=== PATIENT | male | born 1985 | race Asian ===

== ENCOUNTER → 2023-09-19 08:25 | Outpatient (REF) | payer BC, SELFPAY ==
[2023-09-19 12:03] LABS: % Basophils 0.4 % (0-2); % Eosinophils 2.2 % (0-6); % Immature Granulocytes 0.2 % (0-0.5); % Lymphocytes 23.6 % (20.5-51.1); % Monocytes 4.7 % (1.7-9.3); % Neutrophils 68.9 % (42.2-75.2); Absolute Eosinophils 0.2 10^3/uL (0-0.7); Absolute Lymphocytes 2.3 10^3/uL (1.2-3.4); Absolute Monocytes 0.5 10^3/uL (0.1-0.6); Absolute Neutrophils 6.6 10^3/uL (1.4-6.5); Hematocrit 50.5 % (39.0-52.0); Hemoglobin 17.2 g/dL (13.0-18.0); Mean Corp Hgb Conc. 34.1 g/dL (33.0-37.0); Mean Corpuscular Hgb 28.6 pg (27.0-31.0); Nucleated Red Blood Cells % 0 % (-); Platelet Count 288 10^3/uL (130-400); Red Blood Cell Count 6.01 10^6/uL (4.70-6.10); Red Cell Dist. Width 12.2 % (11.5-14.5); White Blood Cell Count 9.6 10^3/uL (4.8-10.8)
[2023-09-19 12:23] LABS: Glycohemoglobin (HgbA1c) 5.8 % (4.0-5.6)
[2023-09-19 12:27] LABS: ALT (SGPT) 33 U/L (0-50); AST (SGOT) 31 U/L (17-59); Alkaline Phosphatase 87 U/L (38-126); Blood Urea Nitrogen 16 mg/dl (9-20); Calcium 9.6 mg/dl (8.4-10.2); Carbon Dioxide 30 mmol/L (22-30); Chloride 102 mmol/L (98-107); Glucose 116 mg/dl (70-99); HDL Cholesterol 39 mg/dl; LDL Cholesterol, Calculated 84 mg/dl; Potassium 4.3 mmol/L (3.5-5.1); Sodium 140 mmol/L (135-145); Total Bilirubin 0.6 mg/dl (0.2-1.3); Total Cholesterol 170 mg/dl (50-199); Total Protein 8.2 g/dl (6.3-8.2); Triglyceride 238 mg/dl (10-149); Very Low Density Lipoprotein 47 mg/dl (0-30); eGFR > 60.00
[2023-09-19 13:07] LABS: Vitamin B12 795 pg/ml (239-931)
== END ==
LOC: HWLAB 08:25
PROVIDERS: ATTENDING PHYSICIAN Internal Medicine
DX: E11.69 Type 2 diabetes mellitus with other specified complication (principal); E78.2 Mixed hyperlipidemia; E53.8 Deficiency of other specified B group vitamins
CPT/HCPCS: 36415; 80053; 80061; 82607; 83036; 85025

== ENCOUNTER → 2024-02-20 13:20 | Outpatient (REF) | payer BC, SELFPAY ==
[2024-02-20 15:29] LABS: % Basophils 0.3 % (0-2); % Eosinophils 1.9 % (0-6); % Immature Granulocytes 0.2 % (0-0.5); % Lymphocytes 23.2 % (20.5-51.1); % Neutrophils 69.4 % (42.2-75.2); Absolute Eosinophils 0.2 10^3/uL (0-0.7); Absolute Monocytes 0.4 10^3/uL (0.1-0.6); Hematocrit 43.8 % (39.0-52.0); Hemoglobin 15.5 g/dL (13.0-18.0); Mean Corp Hgb Conc. 35.4 g/dL (33.0-37.0); Mean Platelet Volume 9.4 fL (7.4-10.4); Nucleated Red Blood Cells % 0 % (-); Platelet Count 264 10^3/uL (130-400); Red Blood Cell Count 5.34 10^6/uL (4.70-6.10); White Blood Cell Count 8.6 10^3/uL (4.8-10.8)
[2024-02-20 16:01] LABS: ALT (SGPT) 21 U/L (0-50); AST (SGOT) 22 U/L (17-59); Albumin 4.8 g/dl (3.5-5.0); Alkaline Phosphatase 80 U/L (38-126); Blood Urea Nitrogen 10 mg/dl (9-20); Calcium 9.8 mg/dl (8.4-10.2); Carbon Dioxide 31 mmol/L (22-30); Chloride 100 mmol/L (98-107); Glucose 104 mg/dl (70-99); HDL Cholesterol 37 mg/dl; LDL Cholesterol, Calculated 38 mg/dl; Sodium 143 mmol/L (135-145); Total Bilirubin 0.8 mg/dl (0.2-1.3); Total Cholesterol 102 mg/dl (50-199); Total Protein 7.5 g/dl (6.3-8.2); Triglyceride 136 mg/dl (10-149); Very Low Density Lipoprotein 27 mg/dl (0-30); eGFR > 60.00
[2024-02-20 16:22] LABS: TSH Reflex To Free T4 2.33 uIU/ml (0.47-4.68)
[2024-02-20 16:41] LABS: Vitamin B12 758 pg/ml (239-931)
[2024-02-21 12:18] LABS: Glycohemoglobin (HgbA1c) 5.5 % (4.0-5.6)
== END ==
LOC: HWLAB 13:20
PROVIDERS: ATTENDING PHYSICIAN Family Medicine
DX: E11.69 Type 2 diabetes mellitus with other specified complication (principal); E78.2 Mixed hyperlipidemia; E53.8 Deficiency of other specified B group vitamins; R53.83 Other fatigue; Z13.29 Encounter for screening for other suspected endocrine disorder
CPT/HCPCS: 36415; 80053; 80061; 82607; 83036; 84443; 85025

== ENCOUNTER → 2024-11-27 10:19 | Outpatient (REF) | payer BC, SELFPAY ==
[2024-11-27 11:36] LABS: ALT (SGPT) 25 U/L (0-50); AST (SGOT) 21 U/L (17-59); Albumin 5.2 g/dl (3.5-5.0); Alkaline Phosphatase 94 U/L (38-126); Blood Urea Nitrogen 18 mg/dl (9-20); Calcium 9.8 mg/dl (8.4-10.2); Carbon Dioxide 28 mmol/L (22-30); Chloride 106 mmol/L (98-107); Glucose 115 mg/dl (70-99); HDL Cholesterol 39 mg/dl; LDL Cholesterol, Calculated 48 mg/dl; Potassium 4.9 mmol/L (3.5-5.1); Sodium 142 mmol/L (135-145); Total Bilirubin 0.4 mg/dl (0.2-1.3); Total Cholesterol 107 mg/dl (50-199); Total Protein 8.2 g/dl (6.3-8.2); Triglyceride 104 mg/dl (10-149); Very Low Density Lipoprotein 20 mg/dl (0-30); eGFR > 60.00
[2024-11-27 14:13] LABS: Glycohemoglobin (HgbA1c) 5.6 % (4.0-5.6)
== END ==
LOC: REG 10:19
PROVIDERS: ATTENDING PHYSICIAN Family Medicine; REFERRING PHYSICIAN Internal Medicine Gastroenterology
DX: E11.69 Type 2 diabetes mellitus with other specified complication (principal); E78.2 Mixed hyperlipidemia
CPT/HCPCS: 36415; 80053; 80061; 83036

== ENCOUNTER → 2025-02-07 08:30 | Outpatient (REF) | payer BC, SELFPAY | LOC: CLAB 08:30 | PROVIDERS: ATTENDING PHYSICIAN Dermatology | DX: D48.5 Neoplasm of uncertain behavior of skin (principal) | CPT/HCPCS: 88305 ==